=== PATIENT | male | born 1955 | race Caucasian/White ===

== ENCOUNTER 2018-09-08 06:47 | Day surgery (SDC) | payer OTHER ==
[~2018-09-08] VITALS: Ht 175.3 cm; Wt 102.5 kg
[~2018-09-08 06:47] MED LIST: Aspir 8181 MG PO; BACL10 PO; K2 PLUS D3 TAB1 EACH PO; LIVALO2 MG PO; Multivitamin1 EAC1 PO; OMEG1CAP30 PO
[2018-10-22] MEDS ORDERED: Bisoprolol-Hct1 EACH PO (14:41)
== END 2018-09-08 09:38 | disposition home or self-care (01) ==
LOC: ORSCSDS 06:47
PROVIDERS: Internal Medicine Gastroenterology
PROC: 0DB58ZX Excision of Esophagus, Via Natural or Artificial Opening Endoscopic, Diagnostic (ICD-10-PCS; principal; 2018-09-08 09:00)
PROC: 0DBN8ZX Excision of Sigmoid Colon, Via Natural or Artificial Opening Endoscopic, Diagnostic (ICD-10-PCS; principal; 2018-09-08 09:00)
PROC: 0DBH8ZX Excision of Cecum, Via Natural or Artificial Opening Endoscopic, Diagnostic (ICD-10-PCS; principal; 2018-09-08 09:00)
PROC: 0D757ZZ Dilation of Esophagus, Via Natural or Artificial Opening (ICD-10-PCS; principal; 2018-09-08 09:00)
PROC: 0DBM8ZX Excision of Descending Colon, Via Natural or Artificial Opening Endoscopic, Diagnostic (ICD-10-PCS; principal; 2018-09-08 09:00)
PROC: 0DB68ZX Excision of Stomach, Via Natural or Artificial Opening Endoscopic, Diagnostic (ICD-10-PCS; principal; 2018-09-08 09:00)
DX: K62.5 Hemorrhage of anus and rectum (principal); R13.10 Dysphagia, unspecified; K21.9 Gastro-esophageal reflux disease without esophagitis; D12.4 Benign neoplasm of descending colon; D12.0 Benign neoplasm of cecum; K63.5 Polyp of colon; K64.8 Other hemorrhoids; K57.30 Diverticulosis of large intestine without perforation or abscess without bleeding; I25.2 Old myocardial infarction; Z87.891 Personal history of nicotine dependence; Z79.82 Long term (current) use of aspirin; Z79.899 Other long term (current) drug therapy
CPT/HCPCS: 88305; 88342; J7120

== ENCOUNTER 2018-10-25 06:46 | Day surgery (SDC) | payer OTHER ==
[~2018-10-25] VITALS: Wt 102.0 kg
[~2018-10-25 06:46] MED LIST changes: +Bisoprolol-Hct1 EACH PO
[2018-10-25] MEDS ORDERED: CLOP75 PO (12:52)
--- NOTE | 2018-10-25 13:29 | NUR ---
TR BAND CONTENTS REMOVED. DISCHARGE TEACHING PERFORMED, USING WRITTEN HANDOUTS WITH HIGHLIGHTED POINTS OF INTEREST FOR MAXIMUM SAFETY. NEW MEDICATION (PLAVIX) EXPLAINED TO PT WITH EMPHASIS FOR NONSTOP DAILY USE. PLAVIX PRESCRIPTION CALLED INTO [facility] (RECORDING LEFT) FOR FILLING. PT INFORMED TO PICKUP PRESCRIPTION TODAY TO ENSURE HE CAN START THE DRUG ON TIME. TR BAND REMOVED AND DSG APPLIED WITH SPLINT TO ANTERIOR FA. IV DC'D WITH CANNULA TIP INTACT. FOLDED 2X2 DSG APPLIED WITH COBAN WRAP. IMMOBILITY TO R WRIST STRESSED TO PT TO AVOID BLEEDING. DISCHARGED FROM HOSPITAL BY WC.
== END 2018-10-25 13:41 | disposition home or self-care (01) ==
LOC: MHTC 06:46
PROC: 027034Z Dilation of Coronary Artery, One Artery with Drug-eluting Intraluminal Device, Percutaneous Approach (ICD-10-PCS; principal; 2018-10-25)
PROC: 4A023N7 Measurement of Cardiac Sampling and Pressure, Left Heart, Percutaneous Approach (ICD-10-PCS; principal; 2018-10-25)
PROC: 4A033BC Measurement of Arterial Pressure, Coronary, Percutaneous Approach (ICD-10-PCS; principal; 2018-10-25)
PROC: B2111ZZ Fluoroscopy of Multiple Coronary Arteries using Low Osmolar Contrast (ICD-10-PCS; principal; 2018-10-25)
PROC: B240ZZ3 Ultrasonography of Single Coronary Artery, Intravascular (ICD-10-PCS; principal; 2018-10-25)
DX: I25.10 Atherosclerotic heart disease of native coronary artery without angina pectoris (principal); R94.39 Abnormal result of other cardiovascular function study; E78.5 Hyperlipidemia, unspecified; G47.33 Obstructive sleep apnea (adult) (pediatric); E66.9 Obesity, unspecified; Z87.891 Personal history of nicotine dependence; Z82.49 Family history of ischemic heart disease and other diseases of the circulatory system
CPT/HCPCS: 85347; 92928; 92978; 93005; 93010; 93458; 93571; 99152; 99153; C1725; C1769; C1874; C1887; C1894; J1644; J2250; J3010; J7030; Q9967